=== PATIENT | female | born 1980 | race Caucasian/White ===

== ENCOUNTER → 2016-07-14 | Outpatient (CLI) | payer OTHER ==
[~2016-07-14] MED LIST: PRENTAB26 PO; ZNTT/150 PO; [UNRECOGNIZED DRUG - CODE] TD; [UNRECOGNIZED DRUG - CODE] TD
[2016-07-18 09:14] LABS: CHLAMYDIA TRACH RNA*** NOT DETECTED (NOT DETECTED); GC (NEIS GONORRHOEAE)RNA** NOT DETECTED (NOT DETECTED)
== END | disposition home or self-care (01) ==
LOC: C.LABPVFM 12:06
PROVIDERS: ATTEND Nurse Practitioner
DX: Z20.2 Contact with and (suspected) exposure to infections with a predominantly sexual mode of transmission (principal)

== ENCOUNTER → 2017-01-09 | Outpatient (CLI) | payer OTHER | END | disposition home or self-care (01) | LOC: C.PATHSPEC 16:56 | PROVIDERS: ATTEND Dermatology | DX: B07.9 Viral wart, unspecified (principal) ==

== ENCOUNTER → 2017-06-07 | Outpatient (CLI) | payer OTHER ==
[2017-06-07 11:06] LABS: BASO % 0.2 %; BASO ABS # 0.01 K/uL (0-0.2); COMPLETE YES; EOS % 1.5 %; HEMATOCRIT 40.4 % (37-47); IG% 0.2 %; LYMPH % 30.1 %; MEAN CELL VOLUME 94.4 fL (80-100); MEAN CORPUSCULAR HEMOGLOBIN 31.3 pg (25-34); MEAN CORPUSCULAR HGB CONC 33.2 g/dl (32-36); MONO % 9.4 %; NEUT % 58.6 %; PLATELET COUNT 244 K/uL (130-400); RED BLOOD COUNT 4.28 M/uL (4.2-5.4); WHITE BLOOD COUNT 5.32 K/uL (4.8-10.8)
[2017-06-07 11:44] LABS: ALKALINE PHOSPHATASE 68 U/L (45-117); ALT/SGPT 22 U/L (12-78); AST/SGOT 16 U/L (15-37); BLOOD UREA NITROGEN 12 mg/dl (7-18); BUN/CREATININE RATIO 14.5 (10-20); CALCIUM 8.4 mg/dl (8.5-10.1); CARBON DIOXIDE 29 mmol/L (21-32); CHLORIDE 107 mmol/L (98-107); CHOLESTEROL 170 mg/dl (0-200); CHOLESTEROL/HDL RATIO 2.6; GLUCOSE 85 mg/dl (70-99); HDL CHOLESTEROL 65 mg/dl; POTASSIUM 3.9 mmol/L (3.5-5.1); SODIUM 138 mmol/L (136-145)
[2017-06-07 11:56] LABS: ALB/GLOB RATIO 0.8 (0.9-2); LDL CHOLESTEROL CALCULATED 91 mg/dl; TRIGLYCERIDES 71 mg/dl (0-150); VERY LOW DENSITY LIPOPROT CALC 14 mg/dl
== END | disposition home or self-care (01) ==
LOC: C.LAB1850 10:25
PROVIDERS: ATTEND Nurse Practitioner
DX: E07.9 Disorder of thyroid, unspecified (principal); D89.2 Hypergammaglobulinemia, unspecified; Z13.6 Encounter for screening for cardiovascular disorders

== ENCOUNTER → 2017-07-20 | Outpatient (CLI) | payer OTHER | END | disposition home or self-care (01) | LOC: C.LABSPEC 16:53 | PROVIDERS: ATTEND Obstetrics & Gynecology | DX: Z11.3 Encounter for screening for infections with a predominantly sexual mode of transmission (principal) ==

== ENCOUNTER → 2017-07-24 | Outpatient (CLI) | payer OTHER | END | disposition home or self-care (01) | LOC: C.LABBFT 15:28 | PROVIDERS: ATTEND Internal Medicine | DX: J02.9 Acute pharyngitis, unspecified (principal) ==